=== PATIENT | female | born 1965 | race Caucasian/White ===

== ENCOUNTER → 2017-11-10 | Outpatient (CLI) | payer OTHER, SELFPAY ==
[~2017-11-10] MED LIST: ACID CONTROL20 MG PO; ANTIBIOTIC OINT28 GM TP; B COMPLEX PO; BENTYL 10 MG CA10 M1 PO; BYETTA PEN 11 PENINJ SC; CYMBALTA60 MG PO; HUMALOG MI100 UNIT/6 SQ; INVOKANA100 MG PO; JANUVIA25 MG PO; JARDIANCE25 MG PO; LEVOXYL175 MCG PO; LIPITOR80 MG PO; LISINOPRIL20 MG PO; MAGNESIUM OXID200 MG PO; METFORMIN 500500 MG PO; METFORMIN HCL500 MG PO; NEURONTIN 300300 M1 PO; OSTERA TABLET1 EACH PO; PERCOCET 5-3251 EACH PO; PROTONIX40 M1 PO; SIMVASTATIN40 MG PO; SINGULAIR 10 MG10 M1 PO; TRESIBA FL100 UNIT/1 SUBQ; VITAMIN D3 PO; ZESTORETIC 20-1 EAC3 PO; ZOLOFT 50 MG TA50 M1 PO
== END ==
LOC: M.NUC 07:05
DX: R10.13 Epigastric pain (principal); R14.0 Abdominal distension (gaseous)

== ENCOUNTER → 2017-12-01 | Day surgery (SDC) | payer OTHER, SELFPAY ==
--- NOTE | ~2017-12-01 | PROC ---
[facility] [address] [place] [address] PROCEDURE REPORT Name: SUELLEN QUINTERO Room: [facility].#: [id number] Admission: 12/01/17 Attend Phys: Reshma Morataya MD Discharge: Date of : 63 Report #: [id number] THIS REPORT FOR: //name// For GI report, please see Perceptive 7 content. By: [id number] Records Staff KORI /MAYRA
[2017-12-01 13:00] LABS: HEMATOCRIT 34.6 % (37.0-47.0); HEMOGLOBIN 11.2 gm/dL (12.0-15.0)
[2017-12-01 13:07] LABS: CALCIUM 8.9 mg/dL (8.5-10.1); POTASSIUM 4.2 mmol/L (3.5-5.1)
--- NOTE | 2017-12-01 16:01 | EKG ---
[place] [address] ELECTROCARDIOGRAM REPORT Name: SULELEN QUINTERO Room: [facility]#: [id number] Admission: 12/01/17 Attend Phys: Reshma Morataya MD Discharge: Date of : 63 Report #: [id number] THIS REPORT FOR: //name// [facility] Test Date: 2017-12-01 Test Time: 13:11:30 Pat Name: SUELLEN QUINTERO Department: Room: Gender: F [employer]: : 1965 Requested By: Reshma Morataya Order Number: [id number] Reading MD: Daniel Stauffer Measurements Intervals [place] Rate: 68 P: 41 WA: 153 QRS: -19 QRSD: 156 T: -14 QT: 445 QTc: 474 Interpretive Statements Sinus rhythm Right bundle branch block Probable left ventricular hypertrophy No previous ECG available for comparison Electronically Signed On 12-01-2017 16:01:31 CDT by Daniel Stauffer [email or web address] <ELECTRONICALLY SIGNED> By: Daniel Stauffer MD, [facility] 12/01/17 1601 D: [id number] Daniel Stauffer MD, FACC /EPI
== END | disposition home or self-care (01) ==
LOC: M.SUR 11-21 09:28
PROVIDERS: Internal Medicine Gastroenterology
DX: K44.9 Diaphragmatic hernia without obstruction or gangrene (principal); K21.9 Gastro-esophageal reflux disease without esophagitis; I10 Essential (primary) hypertension; E78.5 Hyperlipidemia, unspecified; E11.9 Type 2 diabetes mellitus without complications; D64.9 Anemia, unspecified; M79.7 Fibromyalgia; F41.9 Anxiety disorder, unspecified; E66.01 Morbid (severe) obesity due to excess calories; Z98.890 Other specified postprocedural states; Z79.899 Other long term (current) drug therapy; Z88.8 Allergy status to other drugs, medicaments and biological substances

== ENCOUNTER → 2021-06-21 | Outpatient (CLI) | payer OTHER | LOC: M.RAD 13:44 | PROVIDERS: ATTEND Family Medicine | DX: Z12.31 Encounter for screening mammogram for malignant neoplasm of breast (principal) ==